=== PATIENT | female | born 1965 | race Caucasian/White ===

== ENCOUNTER 2020-06-18 22:24 | Emergency (ER) | payer MEDICAID ==
--- NOTE | 2020-06-18 22:36 | NUR ---
PATIENT LEFT WITHOUT BEING SEEN BY DR. MCCRACKEN. NO FURTHER CARE PROVIDED FOR PATIENT.
== END 2020-06-18 22:36 | disposition left against medical advice (07) ==
LOC: MED 22:24
DX: I10 Essential (primary) hypertension (principal); Z02.89 Encounter for other administrative examinations

== ENCOUNTER 2020-07-07 11:29 | Inpatient (IN) | payer MEDICAID, SELFPAY ==
[~2020-07-07] VITALS: Ht 154.9 cm; Wt 58.5 kg
[2020-07-07 11:37] VITALS: BP 127/47
[2020-07-07 13:11] LABS: BASOPHILS % (AUTO) 0.5 % (0.0-2.0); EOSINOPHILS # (AUTO) 0.3 K/uL (0-0.4); MONOCYTES # (AUTO) 0.9 K/uL (0.8-1.0); RED BLOOD CELL COUNT(AUTO) 1.59 MIL/uL (4.20-5.40)
[2020-07-07 13:29] LABS: ALBUMIN 2.9 g/dL (3.4-5.0); ANION GAP 24.6 (8-16); CARBON DIOXIDE 16.3 mmol/L (21-32); POTASSIUM 4.9 mmol/L (3.5-5.1); TOTAL BILIRUBIN 0.4 mg/dL (0.0-1.0)
[2020-07-07 13:33] LABS: CREATININE 17.1 mg/dL (0.6-1.3)
[2020-07-07 13:41] LABS: LYMPHOCYTES # (AUTO) 1.5 K/uL (2.5-16.5); LYMPHOCYTES % (AUTO) 15.7 % (20.5-51.1); MEAN CORPUSCULAR HEMOGLOBIN 31 pg (27-31); MEAN CORPUSCULAR HGB CONC 34 g/dL (33-37); MEAN CORPUSCULAR VOLUME 92.6 fL (80-94); MONOCYTES % (AUTO) 8.8 % (1.7-9.3); PLATELET COUNT (AUTO) 147 K/uL (140-450); RED CELL DISTRIBUTION WIDTH 16.2 % (11.6-13.7); WHITE BLOOD COUNT (AUTO) 9.7 K/uL (4.8-10.8)
[2020-07-07 13:43] LABS: HEMATOCRIT 14.7 % (36-48)
[2020-07-07 13:57] LABS: APPEARANCE,URINE HAZY (CLEAR); BILIRUBIN,URINE NEGATIVE (NEGATIVE); BLOOD, URINE 1+ (NEGATIVE); COLOR,URINE YELLOW (YELLOW); LEUKOCYTE ESTERASE ,URINE 2+ (NEGATIVE); NITRITE, URINE NEGATIVE (NEGATIVE); UGLUCOSE 1+ (NEGATIVE)
[2020-07-07 15:00] LABS: RBC,URINE 0-5 /HPF (0-5); WBC,URINE 16-25 (MOD) /HPF (0-5)
[2020-07-07 21:40] VITALS: BP 137/74
[2020-07-07] MEDS ORDERED: HYDROcodone/APAP 7.5/325 MG 1 TAB PO PRN (22:05)
[2020-07-07] MEDS ORDERED: DOCUSATE SODIUM 100 MG GELCAP PO PRN (22:05)
[2020-07-07] MEDS ORDERED: POTASSIUM CHLORIDE 10 MEQ TABER PO PRN (22:05)
[2020-07-07] MEDS ORDERED: ACETAMINOPHEN 325 MG TAB PO PRN (22:05)
[2020-07-07] MEDS ORDERED: ATOR10TA PO (22:10)
[2020-07-07] MEDS ORDERED: CARV6.25 PO (22:10)
[2020-07-07] MEDS ORDERED: AMLO10TA PO (22:10)
[2020-07-07] MEDS ORDERED: NACL 0.9% 1,000 ML IV SCH (22:15)
[2020-07-07 22:46] LABS: CHOL/HDL RATIO 2.5 (1-4.5); FREE T4 (FREE THYROXINE) 0.65 ng/dL (0.76-1.46); MAGNESIUM 2.9 mg/dL (1.8-2.4); THYROID STIMULATING HORMONE 0.5 uIU/mL (0.34-3.74)
[2020-07-07 22:55] LABS: PROTHROMBIN TIME 9.8 secs (10.8-13.4)
[2020-07-08] VITALS: BP 134/68
[2020-07-08] MEDS ORDERED: cefTRIAXone 1,000 MG VIAL ONE (01:36)
[2020-07-08 04:00] VITALS: BP 142/68
[2020-07-08 05:40] LABS: HEMATOCRIT 21.8 % (36-48)
[2020-07-08 06:05] LABS: HEMOGLOBIN 7.4 g/dL (12.0-16.0)
[2020-07-08 07:08] LABS: BASOPHILS # (AUTO) 0.1 K/uL (0.00-0.22); BASOPHILS % (AUTO) 0.6 % (0.0-2.0); EOSINOPHILS # (AUTO) 0.3 K/uL (0-0.4); EOSINOPHILS % (AUTO) 3.3 % (0.0-4.0); HEMATOCRIT 22.1 % (36-48); HEMOGLOBIN 7.5 g/dL (12.0-16.0); LYMPHOCYTES # (AUTO) 1.8 K/uL (2.5-16.5); LYMPHOCYTES % (AUTO) 20.5 % (20.5-51.1); MEAN CORPUSCULAR HEMOGLOBIN 31 pg (27-31); MEAN CORPUSCULAR HGB CONC 34 g/dL (33-37); MEAN CORPUSCULAR VOLUME 91.4 fL (80-94); MONOCYTES # (AUTO) 0.9 K/uL (0.8-1.0); MONOCYTES % (AUTO) 9.6 % (1.7-9.3); NEUTROPHILS # (AUTO) 5.9 K/uL (1.8-7.7); PLATELET COUNT (AUTO) 138 K/uL (140-450); RED BLOOD CELL COUNT(AUTO) 2.42 MIL/uL (4.20-5.40); RED CELL DISTRIBUTION WIDTH 14.9 % (11.6-13.7); WHITE BLOOD COUNT (AUTO) 8.9 K/uL (4.8-10.8)
[2020-07-08 07:15] LABS: ANION GAP 27.2 (8-16); CARBON DIOXIDE 13.4 mmol/L (21-32); POTASSIUM 4.6 mmol/L (3.5-5.1)
[2020-07-08 07:18] LABS: CREATININE 16.5 mg/dL (0.6-1.3)
[2020-07-08 08:00] VITALS: BP 155/74
[2020-07-08] MEDS: CALCIUM ACETATE 667 MG TAB PO SCH (09:16)
[2020-07-08] MEDS: carvediloL 6.25 MG TAB PO SCH ×2 (09:17→20:35)
[2020-07-08] MEDS: amLODIPine 5 MG TAB PO SCH (09:18)
[2020-07-08 11:47] LABS: RAPID PLASMA REAGIN NON-REACTIVE (Non Reactiv)
[2020-07-08 12:00] VITALS: BP 140/78
[2020-07-08 16:00] VITALS: BP 133/79
[2020-07-08 18:31] LABS: URINE TOTAL PROTEIN 371.7 mg/dL (0-12)
[2020-07-08 20:00] VITALS: BP 134/75
[2020-07-08] MEDS: ATORVASTATIN 20 MG TAB PO SCH (20:36)
[2020-07-09] VITALS: BP 129/66
[2020-07-09 04:00] VITALS: BP 134/72
[2020-07-09 06:00] LABS: BASOPHILS % (AUTO) 0.4 % (0.0-2.0); EOSINOPHILS # (AUTO) 0.3 K/uL (0-0.4); EOSINOPHILS % (AUTO) 2.8 % (0.0-4.0); HEMATOCRIT 21.8 % (36-48); HEMOGLOBIN 7.3 g/dL (12.0-16.0); LYMPHOCYTES # (AUTO) 1.8 K/uL (2.5-16.5); LYMPHOCYTES % (AUTO) 19.3 % (20.5-51.1); MEAN CORPUSCULAR HEMOGLOBIN 31 pg (27-31); MEAN CORPUSCULAR HGB CONC 34 g/dL (33-37); MEAN CORPUSCULAR VOLUME 92.6 fL (80-94); NEUTROPHILS # (AUTO) 6.2 K/uL (1.8-7.7); NEUTROPHILS % (AUTO) 66.5 % (42.2-75.2); PLATELET COUNT (AUTO) 140 K/uL (140-450); RED BLOOD CELL COUNT(AUTO) 2.36 MIL/uL (4.20-5.40); RED CELL DISTRIBUTION WIDTH 15.1 % (11.6-13.7); WHITE BLOOD COUNT (AUTO) 9.4 K/uL (4.8-10.8)
[2020-07-09 07:04] LABS: ANION GAP 22.8 (8-16); POTASSIUM 4.8 mmol/L (3.5-5.1)
[2020-07-09 07:06] LABS: T4 (THYROXINE) 5.4 ug/dL (4.5-12.0)
[2020-07-09 07:07] LABS: MAGNESIUM 2.6 mg/dL (1.8-2.4)
[2020-07-09 07:28] LABS: CREATININE 15.6 mg/dL (0.6-1.3)
[2020-07-09 07:29] LABS: PHOSPHORUS 10.9 mg/dL (2.5-4.9)
[2020-07-09] MEDS: CALCIUM ACETATE 667 MG TAB PO SCH (07:40)
[2020-07-09 08:00] VITALS: BP 136/77
[2020-07-09] MEDS: ONDANSETRON 4 MG/2 ML VIAL IM/IVP PRN (08:29)
[2020-07-09] MEDS: amLODIPine 5 MG TAB PO SCH (08:44)
[2020-07-09] MEDS: carvediloL 6.25 MG TAB PO SCH ×2 (08:45→21:13)
[2020-07-09] MEDS: NACL 0.9% 1,000 ML IV SCH (11:03)
[2020-07-09 12:00] VITALS: BP 114/75
[2020-07-09 15:06] LABS: HEPATITIS B SURFACE ANTIBODY Non Reactive (.); HEPATITIS B SURFACE ANTIGEN Negative (Negative)
[2020-07-09 16:00] VITALS: BP 134/73
[2020-07-09 20:00] VITALS: BP 138/78
[2020-07-09] MEDS: ATORVASTATIN 20 MG TAB PO SCH (21:13)
[2020-07-10] VITALS: BP 116/76
[2020-07-10] MEDS: NACL 0.9% 1,000 ML IV SCH ×2 (03:00→19:40)
[2020-07-10 04:00] VITALS: BP 129/78
[2020-07-10] MEDS: ONDANSETRON 4 MG/2 ML VIAL IM/IVP PRN (04:06)
[2020-07-10 06:20] LABS: ANION GAP 22.5 (8-16); CARBON DIOXIDE 15.9 mmol/L (21-32); POTASSIUM 4.4 mmol/L (3.5-5.1)
[2020-07-10 06:22] LABS: CREATININE 15.5 mg/dL (0.6-1.3)
[2020-07-10 06:24] LABS: BASOPHILS % (AUTO) 0.6 % (0.0-2.0); EOSINOPHILS # (AUTO) 0.3 K/uL (0-0.4); EOSINOPHILS % (AUTO) 3.5 % (0.0-4.0); HEMOGLOBIN 7.4 g/dL (12.0-16.0); LYMPHOCYTES # (AUTO) 1.7 K/uL (2.5-16.5); LYMPHOCYTES % (AUTO) 19.2 % (20.5-51.1); MEAN CORPUSCULAR HEMOGLOBIN 31 pg (27-31); MEAN CORPUSCULAR HGB CONC 34 g/dL (33-37); MEAN CORPUSCULAR VOLUME 92.8 fL (80-94); MONOCYTES # (AUTO) 0.9 K/uL (0.8-1.0); MONOCYTES % (AUTO) 10.2 % (1.7-9.3); NEUTROPHILS # (AUTO) 5.7 K/uL (1.8-7.7); NEUTROPHILS % (AUTO) 66.5 % (42.2-75.2); PLATELET COUNT (AUTO) 139 K/uL (140-450); RED BLOOD CELL COUNT(AUTO) 2.37 MIL/uL (4.20-5.40); WHITE BLOOD COUNT (AUTO) 8.6 K/uL (4.8-10.8)
[2020-07-10 08:00] VITALS: BP 132/68
[2020-07-10] MEDS: CALCIUM ACETATE 667 MG TAB PO SCH ×2 (08:00→08:46)
[2020-07-10] MEDS: carvediloL 6.25 MG TAB PO SCH ×3 (08:46→21:34)
[2020-07-10] MEDS: ALUMINUM HYDROXIDE 64 MG/ML BOTTLE PO SCH ×2 (08:46→09:00)
[2020-07-10] MEDS: amLODIPine 5 MG TAB PO SCH ×2 (08:47→09:00)
[2020-07-10] MEDS ORDERED: ceFAZolin 1,000 MG VIAL ONE (09:35)
[2020-07-10] MEDS ORDERED: LIDOCAINE MPF 1% 10 ML ONE (10:09)
[2020-07-10] MEDS ORDERED: LIDOCAINE/EPI MPF 1%1:200000 30 ML VIAL INJ ONE (10:15)
[2020-07-10] MEDS ORDERED: PROPOFOL 200 MG/20 ML VIAL IV ONE (10:27)
[2020-07-10] MEDS ORDERED: MORPHINE SULFATE 2 MG/ML SYR IVP PRN (11:00)
[2020-07-10] MEDS ORDERED: HYDROcodone/APAP 5/325 MG 1 TAB TAB PO PRN (11:00)
[2020-07-10] MEDS ORDERED: MORPHINE SULFATE 4 MG/ML SYR IV PRN (11:00)
[2020-07-10] MEDS ORDERED: HYDROmorphone 1 MG/ML AMP IVP PRN (11:00)
[2020-07-10 12:00] VITALS: BP 138/60
[2020-07-10 16:00] VITALS: BP 161/77
[2020-07-10] MEDS: ONDANSETRON 4 MG/2 ML VIAL IV PRN ×2 (16:18→23:10)
[2020-07-10 20:00] VITALS: BP 151/73
[2020-07-10] MEDS: ATORVASTATIN 20 MG TAB PO SCH (21:34)
[2020-07-11] MEDS: NACL 0.9% 1,000 ML IV SCH ×2 (00:37→12:21)
[2020-07-11 04:00] VITALS: BP 156/72
[2020-07-11 08:00] VITALS: BP 161/58
[2020-07-11] MEDS: CALCIUM ACETATE 667 MG TAB PO SCH (08:00)
[2020-07-11] MEDS: carvediloL 6.25 MG TAB PO SCH (08:09)
[2020-07-11] MEDS: amLODIPine 5 MG TAB PO SCH (08:10)
[2020-07-11] MEDS: ALUMINUM HYDROXIDE 64 MG/ML BOTTLE PO SCH (09:00)
[2020-07-11 10:06] LABS: ANTI DOUBLE STRANDED DNA AB 1 IU/mL (0-9); ANTI-NUCLEAR ANTIBODY,DIRECT Negative (Negative)
[2020-07-11] MEDS ORDERED: CALC667C3 PO (11:27)
[2020-07-11 11:32] VITALS: BP 155/72
[2020-07-11 11:57] LABS: BASOPHILS % (AUTO) 0.4 % (0.0-2.0); EOSINOPHILS # (AUTO) 0.1 K/uL (0-0.4); EOSINOPHILS % (AUTO) 1.1 % (0.0-4.0); HEMATOCRIT 22.9 % (36-48); HEMOGLOBIN 7.9 g/dL (12.0-16.0); MEAN CORPUSCULAR HEMOGLOBIN 31 pg (27-31); MEAN CORPUSCULAR HGB CONC 35 g/dL (33-37); MEAN CORPUSCULAR VOLUME 90.4 fL (80-94); MONOCYTES # (AUTO) 1.1 K/uL (0.8-1.0); MONOCYTES % (AUTO) 11.1 % (1.7-9.3); NEUTROPHILS # (AUTO) 7.6 K/uL (1.8-7.7); NEUTROPHILS % (AUTO) 77.4 % (42.2-75.2); PLATELET COUNT (AUTO) 138 K/uL (140-450); RED BLOOD CELL COUNT(AUTO) 2.53 MIL/uL (4.20-5.40); WHITE BLOOD COUNT (AUTO) 9.9 K/uL (4.8-10.8)
[2020-07-11 12:01] LABS: ANION GAP 13.9 (8-16); CARBON DIOXIDE 27.6 mmol/L (21-32); CREATININE 2.8 mg/dL (0.6-1.3); POTASSIUM 3.5 mmol/L (3.5-5.1)
== END 2020-07-11 13:00 | disposition home or self-care (01) | DRG 469 ==
LOC: MED 11:29 → MTU 18:45
PROVIDERS: ADMIT Emergency Medicine; ATTEND Emergency Medicine
PROC: 30233N1 Transfusion of Nonautologous Red Blood Cells into Peripheral Vein, Percutaneous Approach (ICD-10-PCS; 2020-07-07)
PROC: 5A1D70Z Performance of Urinary Filtration, Intermittent, Less than 6 Hours Per Day (ICD-10-PCS; 2020-07-09)
PROC: 02HV33Z Insertion of Infusion Device into Superior Vena Cava, Percutaneous Approach (ICD-10-PCS; 2020-07-10)
PROC: B5181ZA Fluoroscopy of Superior Vena Cava using Low Osmolar Contrast, Guidance (ICD-10-PCS; 2020-07-10)
PROC: B548ZZA Ultrasonography of Superior Vena Cava, Guidance (ICD-10-PCS; 2020-07-10)
PROC: 5A1D70Z Performance of Urinary Filtration, Intermittent, Less than 6 Hours Per Day (ICD-10-PCS; 2020-07-10)
PROC: 0JH63XZ Insertion of Tunneled Vascular Access Device into Chest Subcutaneous Tissue and Fascia, Percutaneous Approach (ICD-10-PCS; principal; 2020-07-10 11:20)
DX: N17.0 Acute kidney failure with tubular necrosis (principal); E43 Unspecified severe protein-calorie malnutrition; E87.2 Acidosis; I12.0 Hypertensive chronic kidney disease with stage 5 chronic kidney disease or end stage renal disease; E86.0 Dehydration; E83.39 Other disorders of phosphorus metabolism; N39.0 Urinary tract infection, site not specified; E83.51 Hypocalcemia; E83.41 Hypermagnesemia; E78.5 Hyperlipidemia, unspecified; E03.9 Hypothyroidism, unspecified; Z20.822 Contact with and (suspected) exposure to COVID-19; E78.00 Pure hypercholesterolemia, unspecified; D63.8 Anemia in other chronic diseases classified elsewhere; N18.6 End stage renal disease; Z99.2 Dependence on renal dialysis; Z95.0 Presence of cardiac pacemaker; Z68.24 Body mass index [BMI] 24.0-24.9, adult
CPT/HCPCS: 36415; 71045; 76770; 80048; 80053; 81001; 82570; 83036; 83690; 83735; 83880; 84100; 84436; 84439; 84443; 84479; 85018; 85025; 85610; 85730; 86038; 86160; 86592; 86706; 86803; 86886; 86900; 86901; 86920; 87081; 87086; 87340; 93005; 99285; C1894; J0690; J0696; J1644; J2001; J2405; J2704; J7030; J7060; J7120; P9016

== ENCOUNTER 2020-08-26 14:03 | Emergency (ER) | payer MEDICAID, SELFPAY ==
[~2020-08-26] VITALS: Ht 152.4 cm; Wt 62.6 kg
[~2020-08-26 14:03] MED LIST: AMLO10TA PO; ATOR10TA PO; CALC667C3 PO; CARV6.25 PO
[2020-08-26 14:04] VITALS: BP 153/87
--- NOTE | 2020-08-26 14:10 | NUR ---
Patient ambulated to bed 11. RN evaluating the patient at bedside.
--- NOTE | 2020-08-26 14:19 | NUR ---
Patient being evaluated by DR CHEEK at bedside.
--- NOTE | 2020-08-26 14:23 | NUR ---
55 Y/F PRESENTS TO ED C C/O LEFT FLAN PAIN X 5 DAY C SOB. PT REPORTS CONSTANT PRESSURE 10/10. PT SEEN X 2 DAYS AGO AND GIVEN KEFLEX FOR POSSILBE KIDNEY INFECTION, REPORTS NO RELIEF. PT DENIES N/V/D/ FEVER, DYSURIA OR HEMATURIA. PTS LAST DIALYSIS THIS AM. DENIES CP. PMH: ESRD , DIALYSIS (, THUR, SAT), HTN
[2020-08-26] MEDS ORDERED: KETOROLAC 30 MG/ML VIAL ONE (14:24)
[2020-08-26] MEDS ORDERED: KETOROLAC 30 MG/ML VIAL IVP ONE (14:25)
[2020-08-26] MEDS ORDERED: NACL 0.9% 1,000 ML IV SCH (14:25)
--- NOTE | 2020-08-26 14:30 | NUR ---
PT PLACED ON 3 LEAD ECG AND PULSE OX.
--- NOTE | 2020-08-26 14:35 | NUR ---
STAT LABS DRAWN AND HANDED TO PHLEB
--- NOTE | 2020-08-26 14:36 | NUR ---
PT UNABLE TO VOID AT THIS TIME URINE CUP AT BEDSIDE.
[2020-08-26 14:40] LABS: BASOPHILS # (AUTO) 0.1 K/uL (0.00-0.22); EOSINOPHILS # (AUTO) 0.2 K/uL (0-0.4); EOSINOPHILS % (AUTO) 3.1 % (0.0-4.0); HEMATOCRIT 35.4 % (36-48); HEMOGLOBIN 11.9 g/dL (12.0-16.0); LYMPHOCYTES # (AUTO) 1.6 K/uL (2.5-16.5); LYMPHOCYTES % (AUTO) 25.9 % (20.5-51.1); MEAN CORPUSCULAR HEMOGLOBIN 33 pg (27-31); MEAN CORPUSCULAR HGB CONC 34 g/dL (33-37); MONOCYTES # (AUTO) 0.6 K/uL (0.8-1.0); MONOCYTES % (AUTO) 9.8 % (1.7-9.3); NEUTROPHILS # (AUTO) 3.8 K/uL (1.8-7.7); NEUTROPHILS % (AUTO) 60.2 % (42.2-75.2); PLATELET COUNT (AUTO) 161 K/uL (140-450); RED BLOOD CELL COUNT(AUTO) 3.58 MIL/uL (4.20-5.40); RED CELL DISTRIBUTION WIDTH 17.5 % (11.6-13.7); WHITE BLOOD COUNT (AUTO) 6.2 K/uL (4.8-10.8)
--- NOTE | 2020-08-26 14:43 | NUR ---
PT TAKEN TO CT VIA W/C ACCOMPANIED BY GAMA BIGGS.
[2020-08-26 14:47] LABS: ANION GAP 13.7 (8-16); CARBON DIOXIDE 30.3 mmol/L (21-32); CREATININE 3.9 mg/dL (0.6-1.3)
--- NOTE | 2020-08-26 14:52 | NUR ---
Patient returned from CT scan. RN reevaluating the patient at bedside.
[2020-08-26 14:53] LABS: ALBUMIN 3.7 g/dL (3.4-5.0); TOTAL BILIRUBIN 0.4 mg/dL (0.0-1.0)
[2020-08-26] MEDS ORDERED: MORPHINE SULFATE 4 MG/ML SYR IVP ONE (15:25)
[2020-08-26] MEDS ORDERED: CIPR500T4 PO (15:30)
[2020-08-26] MEDS ORDERED: ACET-8386 PO (15:30)
--- NOTE | 2020-08-26 15:41 | NUR ---
Dr. Dodson is reevaluating the patient at bedside.
[2020-08-26 15:49] VITALS: BP 153/87
--- NOTE | 2020-08-26 15:50 | NUR ---
Patient discharged with v/s stable. Written and verbal after care instructions given and explained. Patient alert, oriented and verbalized understanding of instructions. Ambulatory with steady gait. All questions addressed prior to discharge. ID band removed. Patient advised to follow up with PMD. Rx of CIPRO AND HYDROCODONE given. Patient educated on indication of medication including possible reaction and side effects. Opportunity to ask questions provided and answered. PTS SON WILL BE DRIVING HER HOME.
== END 2020-08-26 15:50 | disposition home or self-care (01) ==
LOC: MED 14:03
DX: N39.0 Urinary tract infection, site not specified (principal); I12.0 Hypertensive chronic kidney disease with stage 5 chronic kidney disease or end stage renal disease; N18.6 End stage renal disease; Z99.2 Dependence on renal dialysis; Z95.0 Presence of cardiac pacemaker; Z79.899 Other long term (current) drug therapy
CPT/HCPCS: 36415; 74176; 80053; 83690; 85025; 96361; 96374; 96375; 99284; J1885; J2270; J7030

== ENCOUNTER 2020-10-05 21:41 | Emergency (ER) | payer MEDICAID ==
[~2020-10-05] VITALS: Ht 142.2 cm; Wt 59.0 kg
[~2020-10-05 21:41] MED LIST changes: +ACET-8386 PO; +CIPR500T4 PO
[2020-10-05 21:53] VITALS: BP 120/69
--- NOTE | 2020-10-05 22:48 | NUR ---
PT TAKEN TO BED 1
--- NOTE | 2020-10-05 22:51 | NUR ---
Obed bowers in [facility] - 10/06/20 at 0017 by [email or web address] SEE [id number]
--- NOTE | 2020-10-05 22:51 | NUR ---
SEE COMPLETE ASSESSMENT.
--- NOTE | 2020-10-05 23:15 | NUR ---
LAB AT BEDSIDE.
[2020-10-05 23:24] LABS: BASOPHILS % (AUTO) 0.5 % (0.0-2.0); EOSINOPHILS # (AUTO) 0.2 K/uL (0-0.4); EOSINOPHILS % (AUTO) 3.1 % (0.0-4.0); HEMATOCRIT 25.3 % (36-48); HEMOGLOBIN 8.4 g/dL (12.0-16.0); LYMPHOCYTES # (AUTO) 2.3 K/uL (2.5-16.5); LYMPHOCYTES % (AUTO) 36.5 % (20.5-51.1); MEAN CORPUSCULAR HEMOGLOBIN 32 pg (27-31); MEAN CORPUSCULAR HGB CONC 33 g/dL (33-37); MEAN CORPUSCULAR VOLUME 97.9 fL (80-94); MONOCYTES # (AUTO) 0.6 K/uL (0.8-1.0); MONOCYTES % (AUTO) 9.9 % (1.7-9.3); NEUTROPHILS # (AUTO) 3.2 K/uL (1.8-7.7); PLATELET COUNT (AUTO) 140 K/uL (140-450); RED BLOOD CELL COUNT(AUTO) 2.58 MIL/uL (4.20-5.40); RED CELL DISTRIBUTION WIDTH 15.2 % (11.6-13.7); WHITE BLOOD COUNT (AUTO) 6.3 K/uL (4.8-10.8)
--- NOTE | 2020-10-05 23:42 | NUR ---
ERMD AT BEDSIDE.
--- NOTE | 2020-10-06 00:15 | NUR ---
DRESSING TO RIGHT CHEST DIALYSIS CATHETER CHANGED WITHOUT DIFFICULTY. PT REPORTS "THATS A LOT BETTER."
--- NOTE | 2020-10-06 01:16 | NUR ---
ERMD AT BEDSIDE.
[2020-10-06 01:43] LABS: ALBUMIN 3.4 g/dL (3.4-5.0); ANION GAP 25.9 (8-16); CARBON DIOXIDE 20.2 mmol/L (21-32); TOTAL BILIRUBIN 0.3 mg/dL (0.0-1.0)
[2020-10-06 01:45] LABS: CREATININE 14.8 mg/dL (0.6-1.3); POTASSIUM 6.1 mmol/L (3.5-5.1)
--- NOTE | 2020-10-06 01:46 | NUR ---
Dr. Colindres examining patient.
[2020-10-06] MEDS ORDERED: FUROSEMIDE 40 MG/4 ML VIAL IVP ONE (01:50)
[2020-10-06] MEDS ORDERED: INSULIN REGULAR, HUMAN 100 UNIT/ML VIAL IVP ONE (01:50)
[2020-10-06] MEDS ORDERED: DEXTROSE 50% 50 ML SYR IVP ONE ×6 (01:50→04:50)
--- NOTE | 2020-10-06 02:20 | NUR ---
JULITO OF NARES COLLECTED AND TAKEN TO LAB BY YENI ROMAN.
--- NOTE | 2020-10-06 02:50 | NUR ---
PT AMBULATED TO RESTROOM WITH STEADY AND EVEN GAIT.
--- NOTE | 2020-10-06 03:32 | NUR ---
ERMD AT BEDSIDE.
[2020-10-06 04:22] LABS: ALBUMIN 3.3 g/dL (3.4-5.0); ANION GAP 24.9 (8-16); CARBON DIOXIDE 20.1 mmol/L (21-32); TOTAL BILIRUBIN 0.4 mg/dL (0.0-1.0)
[2020-10-06 04:43] LABS: CREATININE 15.5 mg/dL (0.6-1.3)
--- NOTE | 2020-10-06 04:45 | NUR ---
ERMD AT BESIDE EXPLAINING PT CONDITION. PT VERBALIZED UNDESTANDING AND PT SIGNED AMA FORMS.
--- NOTE | 2020-10-06 04:45 | NUR ---
Dr. Colindres examining patient.
[2020-10-06 05:47] VITALS: BP 169/82
--- NOTE | 2020-10-06 05:47 | NUR ---
Patient discharged with v/s stable. Written and verbal after care instructions given and explained. Patient verbalized understanding. Ambulatory with steady gait. All questions addressed prior to discharge. PT D/C OSCAR.
== END 2020-10-06 05:47 | disposition left against medical advice (07) ==
LOC: MED 21:41
DX: E87.6 Hypokalemia (principal); Z20.822 Contact with and (suspected) exposure to COVID-19
CPT/HCPCS: 36415; 71045; 80053; 85025; 87426; 93005; 96374; 96375; 96376; 99291; J1815; J1940

== ENCOUNTER 2021-04-06 07:30 | Emergency (ER) | payer OTHER, MEDICAID ==
[~2021-04-06] VITALS: Ht 139.7 cm; Wt 59.4 kg
[2021-04-06 07:49] VITALS: BP 133/70
--- NOTE | 2021-04-06 07:52 | NUR ---
novel swabbed at this time
[2021-04-06 09:33] VITALS: BP 133/70
--- NOTE | 2021-04-06 09:33 | NUR ---
Patient discharged with v/s stable. Written and verbal after care instructions given and explained. Patient verbalized understanding. Ambulatory with steady gait. All questions addressed prior to discharge. Advised to follow up with PMD.
== END 2021-04-06 09:33 | disposition home or self-care (01) ==
LOC: MED 07:30
DX: U07.1 COVID-19 (principal); I12.9 Hypertensive chronic kidney disease with stage 1 through stage 4 chronic kidney disease, or unspecified chronic kidney disease; N18.9 Chronic kidney disease, unspecified
CPT/HCPCS: 71045; 93005; 99285; U0003

== ENCOUNTER 2021-05-05 18:03 | Inpatient (IN) | payer OTHER, MEDICAID, SELFPAY ==
[~2021-05-05] VITALS: Ht 139.7 cm; Wt 57.6 kg
[2021-05-05 18:15] VITALS: BP 142/58
--- NOTE | 2021-05-05 18:27 | NUR ---
PT AMBULATED TO BED, STEADY GAIT
--- NOTE | 2021-05-05 18:30 | NUR ---
55 y/o female c/o abnormal labs. pt is requesting a blood transfusion for low hgb of 6.6 per her pcp. denies sob, cough, cp, chills, fever, sore throat, n/v/d. pmh: dialysis (friday, , friday), htn, hld nka med: unable to recall medication
--- NOTE | 2021-05-05 18:35 | NUR ---
ermd at bedside examining pt
--- NOTE | 2021-05-05 18:45 | NUR ---
blood work collected handed to kelsie miller
--- NOTE | 2021-05-05 18:50 | NUR ---
xray at bedside
--- NOTE | 2021-05-05 19:08 | NUR ---
Pt report given to MARI JAIME. Transfer of care at this time.
[2021-05-05 19:10] LABS: BASOPHILS % (AUTO) 0.2 % (0.0-2.0); EOSINOPHILS # (AUTO) 0.2 K/uL (0-0.4); EOSINOPHILS % (AUTO) 3.3 % (0.0-4.0); HEMATOCRIT 20.1 % (36-48); LYMPHOCYTES # (AUTO) 1.7 K/uL (2.5-16.5); LYMPHOCYTES % (AUTO) 31.2 % (20.5-51.1); MEAN CORPUSCULAR HEMOGLOBIN 34 pg (27-31); MEAN CORPUSCULAR HGB CONC 33 g/dL (33-37); MONOCYTES # (AUTO) 0.7 K/uL (0.8-1.0); MONOCYTES % (AUTO) 13.2 % (1.7-9.3); NEUTROPHILS # (AUTO) 2.9 K/uL (1.8-7.7); NEUTROPHILS % (AUTO) 52.1 % (42.2-75.2); PLATELET COUNT (AUTO) 170 K/uL (140-450); RED BLOOD CELL COUNT(AUTO) 1.99 MIL/uL (4.20-5.40); RED CELL DISTRIBUTION WIDTH 16.3 % (11.6-13.7); WHITE BLOOD COUNT (AUTO) 5.6 K/uL (4.8-10.8)
[2021-05-05 19:17] LABS: HEMOGLOBIN 6.7 g/dL (12.0-16.0)
[2021-05-05 19:18] LABS: PROTHROMBIN TIME 9.7 secs (10.8-13.4)
--- NOTE | 2021-05-05 19:22 | NUR ---
PATIENT ALERT ORIENTED NOT COMPLAINING OF PAIN VITALS SIGNS IN NORMAL LIMITS I JUST SWAP THE PATIENT FOR COVID SAMPLE SEND TO THE LAB PATIENT IS POSSIBLE ADMITION //Kylee JAIME
[2021-05-05 19:32] LABS: ALBUMIN 3.2 g/dL (3.4-5.0); ANION GAP 20.9 (8-16); CARBON DIOXIDE 26.8 mmol/L (21-32); POTASSIUM 5.7 mmol/L (3.5-5.1); TOTAL BILIRUBIN 0.4 mg/dL (0.0-1.0)
[2021-05-05 19:38] LABS: CREATININE 12.2 mg/dL (0.6-1.3)
--- NOTE | 2021-05-05 19:40 | NUR ---
PATIENT HEMOGLOBIN IS 6.7 WE HAVE CONCENT SIGNS FOR THE PATIENT AND I CALL THE BANK AND THE TECH SAY THAT WE DONT HAVE BLOOD AVAILABLE FOR THE PATIENT //Kylee RN
--- NOTE | 2021-05-05 20:44 | NUR ---
I TALK TO DR BARTLETT AND HE WANT TO ADMITED THE PATIENT TO TELEMETRY //DiCaprio RN
[2021-05-05] MEDS ORDERED: CALCIUM GLUC 1 GM/50 mL NS BAG 50 ML IV ONE (21:10)
[2021-05-05] MEDS ORDERED: INSULIN REGULAR, HUMAN 100 UNIT/ML VIAL IVP ONE (21:10)
[2021-05-05] MEDS ORDERED: DEXTROSE 50% 50 ML SYR IVP ONE (21:10)
--- NOTE | 2021-05-06 01:14 | NUR ---
PATIENT SLEEPING AT THIS TIME VITALS SIGNS IN NORMAL LIMITS //DiCaprio RN
--- NOTE | 2021-05-06 05:41 | NUR ---
PATIENT AWAKE AT THIS TIME VITALS SIGNS IN NORMAL LIMITS NOT COMPLAINING OF PAIN //DiCaprio RN
[2021-05-06] MEDS ORDERED: ONDANSETRON 4 MG/2 ML VIAL IVP PRN (07:00)
[2021-05-06] MEDS ORDERED: ACETAMINOPHEN 325 MG TAB PO PRN (07:00)
--- NOTE | 2021-05-06 07:30 | NUR ---
Obed bowers in ED - 05/06/21 at 0834 by KIMBERLY US TECH AT BEDSIDE PERFORMING PELVIC US
--- NOTE | 2021-05-06 07:30 | NUR ---
Report received from YENI Germain. Transfer of care at this time.
[2021-05-06 07:44] LABS: BASOPHILS # (AUTO) 0.1 K/uL (0.00-0.22); BASOPHILS % (AUTO) 0.6 % (0.0-2.0); EOSINOPHILS # (AUTO) 0.1 K/uL (0-0.4); EOSINOPHILS % (AUTO) 1.5 % (0.0-4.0); LYMPHOCYTES % (AUTO) 22.5 % (20.5-51.1); MEAN CORPUSCULAR HEMOGLOBIN 34 pg (27-31); MEAN CORPUSCULAR HGB CONC 33 g/dL (33-37); MEAN CORPUSCULAR VOLUME 101.8 fL (80-94); MONOCYTES # (AUTO) 0.8 K/uL (0.8-1.0); MONOCYTES % (AUTO) 8.7 % (1.7-9.3); NEUTROPHILS % (AUTO) 66.7 % (42.2-75.2); PLATELET COUNT (AUTO) 161 K/uL (140-450); RED BLOOD CELL COUNT(AUTO) 1.93 MIL/uL (4.20-5.40); RED CELL DISTRIBUTION WIDTH 15.8 % (11.6-13.7)
[2021-05-06 07:59] LABS: ANION GAP 22.9 (8-16); CARBON DIOXIDE 21.2 mmol/L (21-32)
[2021-05-06 08:00] LABS: HEMATOCRIT 19.6 % (36-48); HEMOGLOBIN 6.5 g/dL (12.0-16.0)
[2021-05-06 08:06] LABS: POTASSIUM 7.1 mmol/L (3.5-5.1)
[2021-05-06 08:07] LABS: CREATININE 12.8 mg/dL (0.6-1.3)
--- NOTE | 2021-05-06 08:15 | NUR ---
breakfast tray provided to pt, pt sitting comfortable in bed.
--- NOTE | 2021-05-06 08:17 | NUR ---
RECEIVED CRITICAL LAB VALUE HGB 6.5 AND HEMATOCRIT 19.6. PER BLOOD BANK, THEY DO NOT HAVE O NEGATIVE BLOOD AND WILL NOT RECEIVE ANY UNTIL TOMORROW. DR BARTLETT MADE AWARE.
--- NOTE | 2021-05-06 08:53 | NUR ---
PT ABULATED TO RESTROOM STEADY GAIT, PLACED BACK ON MONITOR, PT RESTING COMFORTABLE IN BED STILL WORKING ON BREAKFAST TRAY.
--- NOTE | 2021-05-06 10:00 | NUR ---
ACCURACY EXPERT AT BED SETTING UP FOR PT TO HAVE DIALYSIS
--- NOTE | 2021-05-06 10:22 | NUR ---
DR KESSLER AT BEDSIDE PERFORMING EVAL AND SIGNING DIALYSIS CONSENT WITH PT.
--- NOTE | 2021-05-06 10:50 | NUR ---
PATIENT RECEIVING DIALYSIS, LEARNING TECHNOLOGIES SPECIALIST AT BEDSIDE MONITORING PT, PT IN BED POSITIONED FOR COMFORT; HOB ELEVATED; BEDRAILS UP X2; BED DOWN.
--- NOTE | 2021-05-06 12:29 | NUR ---
(2) 5000 UNITS HEPARIN ADMINISTERED BY DIALYSIS NURSE S/P HEMODIALYSIS. STANDARD ORDER PER JAVIER.
--- NOTE | 2021-05-06 13:00 | NUR ---
PLUNKET NURSE MOON STATED THAT SHE WAS ABLE TO TAKE 2L OFF PT DURING HDX.
--- NOTE | 2021-05-06 13:10 | NUR ---
HDX IS COMPLETED, PT TOLERATED WELL. LUNCH TRAY PROVIDED.
[2021-05-06 14:00] VITALS: BP 160/74
--- NOTE | 2021-05-06 14:00 | NUR ---
PT FINISHED 100 % OF LUNCH TRAY
--- NOTE | 2021-05-06 14:20 | NUR ---
PT IS REQUESTING TO LEAVE AMA CALLED DR BARTLETT TO NOTIFY HIM AT THIS TIME.
--- NOTE | 2021-05-06 14:26 | NUR ---
Patient does not wish to proceed with medical care recommended by Dr Reaves. Patient given information related to possible complications, up to and including , which could occur as a result of leaving hospital at this time. Patient verbalizes understanding of risks involved leaving against medical advice. Patient has signed AMA form. Pt left no IV.
[2021-05-07 09:06] LABS: FOLIC ACID > 20.00 ng/mL (>3.0)
[2021-05-07 20:24] LABS: FERRITIN 1460 ng/mL (15 - 150); TRANSFERRIN 110 mg/dL (200 - 370)
== END 2021-05-06 14:26 | disposition left against medical advice (07) | DRG 812 ==
LOC: MED 18:03 → MMU 20:55
PROVIDERS: ADMIT General Practice; ATTEND General Practice
PROC: 5A1D70Z Performance of Urinary Filtration, Intermittent, Less than 6 Hours Per Day (ICD-10-PCS; principal; 2021-05-06)
PROC: 0BH17EZ Insertion of Endotracheal Airway into Trachea, Via Natural or Artificial Opening (ICD-10-PCS; 2021-05-06)
PROC: 5A1935Z Respiratory Ventilation, Less than 24 Consecutive Hours (ICD-10-PCS; 2021-05-06)
DX: D64.9 Anemia, unspecified (principal); E87.5 Hyperkalemia; E78.5 Hyperlipidemia, unspecified; Z20.822 Contact with and (suspected) exposure to COVID-19; Z95.0 Presence of cardiac pacemaker; Z79.891 Long term (current) use of opiate analgesic; Z79.899 Other long term (current) drug therapy
CPT/HCPCS: 36415; 71045; 80048; 80053; 82550; 82607; 82728; 82746; 83036; 83540; 83605; 83880; 84443; 84484; 85025; 85045; 85610; 85730; 86886; 86900; 86901; 86920; 87040; 93005; 96374; 96375; 99285; J0160; J1644; J1815

== ENCOUNTER 2021-12-19 11:22 | Outpatient (CLI) | payer OTHER, MEDICAID | END 2021-12-19 21:37 | disposition home or self-care (01) | LOC: MCT 11:22 | PROVIDERS: ATTEND Internal Medicine Critical Care Medicine | DX: I51.7 Cardiomegaly (principal); E04.1 Nontoxic single thyroid nodule; I28.8 Other diseases of pulmonary vessels; I70.0 Atherosclerosis of aorta; N26.1 Atrophy of kidney (terminal); N28.89 Other specified disorders of kidney and ureter; J91.8 Pleural effusion in other conditions classified elsewhere | CPT/HCPCS: 71250 ==